=== PATIENT | female | born 1975 | race Caucasian/White ===

== ENCOUNTER 2017-09-09 04:49 | Emergency (ER) | payer OTHER ==
[~2017-09-09] VITALS: Ht 175.3 cm; Wt 143.1 kg
[~2017-09-09 04:49] MED LIST: CLONIDINE HCL0.1 MG PO; FIORICET 50-301 EACH PO; PERCOCET 5/31 TABLET PO; TRAZODONE HCL50 MG PO; ZOFRAN4 MG PO
[2017-09-09] MEDS ORDERED: SALINE MIST44 ML NS (06:47)
[2017-09-09] MEDS ORDERED: MUCINEX DM ER1 EACH PO (06:47)
[2017-09-09] MEDS ORDERED: OXYCODONE HCL5 MG PO (06:47)
[2017-09-09 07:07] VITALS: BP 169/91
== END 2017-09-09 07:16 | disposition home or self-care (01) ==
LOC: EME 04:49
DX: J01.90 Acute sinusitis, unspecified (principal); R03.0 Elevated blood-pressure reading, without diagnosis of hypertension; F17.200 Nicotine dependence, unspecified, uncomplicated
CPT/HCPCS: 70486; 99281; 99284; J1885; J2765; J7030

== ENCOUNTER 2017-11-19 06:34 | Emergency (ER) | payer OTHER ==
[~2017-11-19] VITALS: Ht 175.3 cm; Wt 146.0 kg
[~2017-11-19 06:34] MED LIST changes: +MUCINEX DM ER1 EACH PO; +OXYCODONE HCL5 MG PO; +SALINE MIST44 ML NS
[2017-11-19] MEDS ORDERED: AUGMENTIN875 MG PO (08:09)
[2017-11-19] MEDS ORDERED: PERCOCET 5/31 TABLET PO (08:09)
[2017-11-19 08:28] VITALS: BP 172/99
== END 2017-11-19 08:29 | disposition home or self-care (01) ==
LOC: EME 06:34
DX: J32.2 Chronic ethmoidal sinusitis (principal); H66.93 Otitis media, unspecified, bilateral; F17.200 Nicotine dependence, unspecified, uncomplicated
CPT/HCPCS: 70486; 99281; 99284; J1200; J1885; J2765; J7030

== ENCOUNTER 2017-12-04 14:45 | Emergency (ER) | payer OTHER ==
[~2017-12-04] VITALS: Ht 175.3 cm; Wt 142.9 kg
[~2017-12-04 14:45] MED LIST changes: +AUGMENTIN875 MG PO
[2017-12-04] MEDS ORDERED: LEVAQUIN500 MG PO (17:25)
[2017-12-04] MEDS ORDERED: CIPRO HC OTIC S10 ML BOTH EARS (17:25)
[2017-12-04] MEDS ORDERED: ZOFRAN ODT4 MG PO (17:25)
[2017-12-04 17:45] VITALS: BP 157/99
[2017-12-04] MEDS ORDERED: FIORICET,ESG1 TABLET PO (17:58)
== END 2017-12-04 18:00 | disposition home or self-care (01) ==
LOC: EME 14:45
DX: R51 Headache (principal); F17.200 Nicotine dependence, unspecified, uncomplicated
CPT/HCPCS: 70450; 99281; 99284; J1885